=== PATIENT | female | born 1990 | race Caucasian/White ===

== ENCOUNTER 2018-07-12 12:56 | Emergency (ER) | payer MEDICAID, SELFPAY ==
[2018-07-12 12:57] VITALS: BP 115/69; PULSE 109; RESP 18; TEMP 38.1; O2SAT 100; BMI 20.1
--- NOTE | 2018-07-12 13:09 | RAD_ITS ---
STUDY: X-RAY CHEST REASON FOR EXAM: Female, 27 years old. Several day history of fever and generalized illness. TECHNIQUE: PA and lateral views of the chest. COMPARISON: None. FINDINGS: The lungs are clear and expanded. Scattered calcified granulomas. There is no demonstrated pleural abnormality. Normal size heart. Normal mediastinum and nydia. Normal visualized pulmonary arteries. Normal visualized aortic arch and descending thoracic aorta. Normal visualized thoracic spine. Normal visualized ribs, clavicles, and shoulders. There is no demonstrated abnormality of the visualized soft tissue structures of the upper abdomen. RAD/Chest PA and Lateral IMPRESSION: Normal x-ray examination of the chest. Electronically Signed: Tushar Borrego MD at 14:26 EDT Tel [phone], Service support ,
[2018-07-12 13:13] VITALS: BP 110/63; PULSE 99; RESP 16; O2SAT 100
[2018-07-12] MEDS: Ketorolac 30 MG/ML Syringe IV (13:34)
[2018-07-12] MEDS: 0.9% Normal Saline 1,000 ML 1000 ML IV (13:34)
[2018-07-12] MEDS: Ondansetron 4 MG/2 ML Vial IV (13:34)
[2018-07-12 13:39] LABS: Absolute Lymphocyte Count 0.64 X10^3/ul (0.83-4.51); Absolute Neutrophil Count 9.2 X10^3/uL (2.0-7.7); Basophil# 0.01 X10^3/uL; Basophil% 0.1 % (0-1); Eosinophil# 0.02 X10^3/uL; Eosinophils% 0.2 % (0-5); Hematocrit 35.7 % (37-47); Hemoglobin 11.5 g/dl (12.0-15.0); Lymphocyte # 0.64 X10^3/ul (4.0); Lymphocyte % 6.1 % (19-41); Mean Corp Hgb Conc 32.2 g/gl (32-36); Mean Corpuscular Hgb 28.8 pg (27.0-32.0); Mean Corpuscular Volume 89.3 fL (81-99); Mean Platelet Vol. 10.2 fl (6.2-12.0); Monocyte# 0.56 X10^3/uL; Monocyte% 5.3 % (0-10); Neutrophil # 9.24 X10^3/uL (2.7-7.7); Neutrophil % 88.2 % (47-70); Platelet Count 137 K/mm3 (150-450); RBC Distribution Width CV 13.2 % (11.6-14.6); RBC Distribution Width SD 43.1 fl (35.1-43.9); White Blood Count 10.5 K/mm3 (4.4-11.0)
[2018-07-12 13:40] LABS: POSITIVE COUNT NO; POSITIVE DIFFERENTIAL NO; POSITIVE MORPHOLOGY NO
[2018-07-12 13:41] LABS: Anion Gap 7 (5-15); BUN 14 mg/dL (7-18); BUN/Creat Ratio 14.4 RATIO (10-20); Calcium,Total 8.3 mg/dL (8.5-10.1); Chloride 107 mmol/L (98-107); Creatinine, Serum 0.97 mg/dL (0.55-1.02); EST Glomerular Filtration Rate 72 mL/min (>60); Est Glom Filt Rate - Afr Amer 87 mL/min (>60); Estimated Creatinine Clearance 68.01 ml/min; Glucose 118 mg/dL (74-106); Potassium 3.8 mmol/L (3.5-5.1); Sodium Level 139 mmol/L (136-145)
--- NOTE | 2018-07-12 13:44 | ED.VISSUMM ---
- ER Visit Summary Date of Service: 07/12/18 Chief Complaint: Fever History of Present Illness: The patient is a 27 F presents to the emergency department fever and chills. The patient states her symptoms began about 5 days ago. She states that she had just generalized malaise and some body aches. Since then, her symptoms worsened. She is been nauseated and lightheaded. She is also had sore throat and productive cough. She describes diffuse muscle pain. She denies any shortness of breath. She denies any abdominal pain. She denies any dysuria. Her fianc? was sick with a diarrhea illness but she states that her symptoms are different. Physical Examination: Vital signs reviewed General: Well-nourished, well-developed Head: Normocephalic, atraumatic Eyes: Pupils equal and reactive, extraocular muscles intact Neck, supple, no lymphadenopathy Heart: Regular rate and rhythm Respiratory: No distress, clear bilaterally Abdomen: Soft, nontender, nondistended, no peritoneal signs Back: Nontender Extremities: Nontender, no edema, no cords Skin: Normal color no rash Neuro: Alert and oriented, no focal or lateralizing deficits Test Results: [] Emergency Department Course and Treatment: The patient presents with fever and myalgias. She does have some scant erythema of the left tonsil. The uvula is midline. There is no evidence of retropharyngeal or peritonsillar abscess. IV was established. Patient was given fluids, Zofran, and Toradol. She did have improvement of her pain and resolution of her fever. Labs do show mild leukocytosis but otherwise unremarkable. The patient's rapid strep was positive, but it also appears as if she has evidence of pyelonephritis. Urine culture was added. I do feel that the most appropriate treatment at this time would be oral Augmentin to cover both the urine and the pharyngitis. The patient is feeling improved. At this time, I do feel that she is safe for outpatient therapy. She was counseled on concerning symptoms and reasons to return. She will be discharged home. Treatment Plan: [] Disposition: Discharge Impression: 1. Pyonephritis 2. Strep pharyngitis This note was generated with [employer] software. It may contain incorrect words, spelling, and punctuation that were not noted in review of the chart prior to signing ED Disposition - Plan for ED Patient: Chief Complaint: Fever Instructions: ED Kidney Infec Female Prescriptions: Ondansetron [Zofran Odt] 4 mg PO Q8H PRN PRN #10 tab PRN Reason: Nausea Amox/Clavulanate Tablet [Augmentin Tablet] 875 mg PO Q12H #20 tab Referrals: Care Physician,No Primary [Primary Care Provider] -
[2018-07-12 14:00] LABS: Color, Urine Yellow (Yellow); Glucose, Dipstick 100 mg/dl (Normal); Ketone-Dipstick 15 mg/dl (Negative); Leukocyte Esterase-Dipstick 500 /ul (Negative); Nitrite-Dipstick Positive (Negative); Occult Blood-Urine 250 /ul (Negative); Protein-Dipstick 100 mg/dl (Negative); Urine Bilirubin Dipstick Negative (Negative); Urine Clarity Cloudy (Clear); Urine Urobilinogen 4 mg/dl (Normal); Urine pH 6.5 (5.0 - 8.0)
[2018-07-12 14:03] LABS: Internal QC Validated? YES +Cl - CLEAR BKGD; Pregnancy, Urine Negative Negative
[2018-07-12 14:10] LABS: White Blood Cells >100 SEEN /hpf (0-5)
[2018-07-12 14:11] LABS: Bacteria 1+ /hpf (None Seen); Red Blood Cells-Urine > 100 SEEN /hpf (0-5); Squamous Epithelial Cells - UA 5-10 SEEN /hpf (5-10)
[2018-07-12 14:12] LABS: Mucous, Urine RARE /hpf (<or=2+)
[2018-07-12 14:13] LABS: Trichomonas 0-5 SEEN /hpf (None Seen)
[2018-07-12 15:20] VITALS: BP 91/61; PULSE 93; RESP 16; O2SAT 98
[2018-07-12] MEDS: Amox/Clavulanate 875 MG Tablet PO (15:20)
== END 2018-07-12 15:32 | disposition home or self-care (01) ==
PROVIDERS: Emergency Provider Emergency Medicine
DX: N12 Tubulo-interstitial nephritis, not specified as acute or chronic (principal); B96.89 Other specified bacterial agents as the cause of diseases classified elsewhere; J02.0 Streptococcal pharyngitis; Z72.0 Tobacco use
CPT/HCPCS: 71046; 80048; 81001; 81025; 85025; 87086; 87088; 87186; 87880; 96361; 96374; 96375; 99283; J7030; A4216; J2405

== ENCOUNTER 2019-08-22 09:50 | Emergency (ER) | payer MEDICAID, SELFPAY ==
[2019-08-22 09:51] VITALS: BP 123/73; PULSE 76; RESP 18; TEMP 36.6; O2SAT 100; BMI 18.6
[2019-08-22 09:53] VITALS: TEMP 36.6
--- NOTE | 2019-08-22 10:02 | ED.DCSUM_ITS ---
- ER Visit Summary Date of Service: 08/22/19 Chief Complaint: Dental pain History of Present Illness: The patient is a 29 F who states for the past 3 days she had a left lower posterior tooth pain. She has not made an appointment with dentist but thinks she should. States the pain continues to persist no difficulty opening her mouth. She is a daily smoker. No fevers. Physical Examination: Afebrile vital signs are stable Gen: Well-nourished well-developed Head: Normocephalic atraumatic Eyes: Perrl EOMI ENT: TMs clear no rhinorrhea moist mucous membranes there are numerous teeth that are missing. On the right premolar there is evidence of focal decay but not painful. The posterior most remaining molar shows evidence of prior fillings. It is tender to palpation. There is no focal gum swelling. No jaw swelling. No trismus. No overlying erythema. Neck: Supple no lymphadenopathy no JVD nontender CVS: Regular rate rhythm no murmurs normal S1-S2 Respiratory: No distress clear to auscultation bilaterally chest nontender Abdomen: Soft nontender nondistended normal bowel sounds no masses Back: Nontender Extremity: Nontender no edema Skin: Normal color no rash Neuro: alert orientated ?3 CN II-XII intact normal strength sensation reflexes gait cerebellar Psych: Normal affect normal mood Emergency Department Course and Treatment: Patient was given a short course of Pen-Vee K as well as scheduled ibuprofen. She is to see dentistry as soon as possible Impression: 1. Odontalgia This note was generated with [employer] dictation software. It may contain incorrect words, spelling, and punctuation that were not noted in review of the chart prior to signing ED Disposition - Plan for ED Patient: Disposition: Home or Assisted Living Instructions: Dental Pain Prescriptions: Ibuprofen [Motrin] 800 mg PO TID PRN PRN #20 tab PRN Reason: pain Prescription Printed Penicillin V Potassium 500 mg PO 4X/DAY #20 tab Prescription Printed Additional Instructions: You need to see dentistry as soon as possible. If you do not see dentistry this is a problem that persist
[2019-08-22 10:24] VITALS: RESP 16
== END 2019-08-22 10:24 | disposition home or self-care (01) ==
PROVIDERS: Emergency Provider Emergency Medicine
DX: K02.9 Dental caries, unspecified (principal); F17.210 Nicotine dependence, cigarettes, uncomplicated
CPT/HCPCS: 99282

== ENCOUNTER 2020-06-19 19:27 | Emergency (ER) | payer MEDICAID, SELFPAY ==
[2020-06-19 19:28] VITALS: BP 111/68; PULSE 79; RESP 15; TEMP 36.8; O2SAT 99; BMI 17.6
--- NOTE | 2020-06-19 19:39 | ED.DCSUM_ITS ---
History of Present Illness Chief Complaint: Fever Informant: Patient Onset: Days - 3 days Context: Gradual Onset Timing: Waxes and wanes Current Severity: Mild Maximum Severity: Moderate Narrative: Patient presents with 3-day history of fever, T-max equals 102. She states has been taking DayQuil and ibuprofen to help keep her fever down. She was seen by her doctor last week and did get what she believes was the pneumonia vaccine. She denies sore throat or congestion. She has no cough, chest pain, or shortness of breath. She denies abdominal pain, nausea, vomiting, or diarrhea. She denies urinary symptoms. She has no wounds or lesions noted. She denies exposure to anyone known to have Covid. She states she has been staying home and not really going out. - Past Medical History (1) Anxiety and depression Status: Chronic Past Medical History - Allergies and Home Meds Allergies/Adverse Reactions: Allergies No Known Allergies Allergy (Verified 08/22/19 09:52) Primary Care Physician: Josue Osuna MD [Primary Care Provider] - Smoking Status: Former smoker - Quit smoking 1 week ago Review of Systems General: Reports: Fever Eyes: Denies: Visual changes - bilaterally ENT: Denies: Bilateral ear pain, Sore throat Cardiovascular: Denies: Chest pain Respiratory: Denies: Dyspnea, Cough Gastrointestinal: Denies: Abdominal pain, Nausea, Vomiting, Diarrhea Genitourinary: Denies: Dysuria Musculoskeletal: Denies: Swelling, Extremity Pain Skin: Denies: Rash, Wounds Neurological: Denies: Headache Hematologic: Denies: Easy bruising, Easy bleeding Allergy: Denies: Uticaria Physical Exam Vital Signs/Narrative: Vital Signs Temp Pulse Resp BP Pulse Ox 06/19/20 19:28 98.2 F 79 15 111/68 99 Inital Vital Signs reviewed: Yes General: Well nourished, Well developed Head: Normocephalic ENT: Moist mucous membranes, TM's clear Neck: Supple Cardiovascular: Regular rate, Regular rhythm Respiratory: No distress, CTA bilaterally Abdomen: Soft, Nontender, Normal bowel sounds Back: Nontender Extremities: Nontender Skin: Normal color Neurological: Alert, Oriented x3 Psychological: Normal affect Diagnostic/Tx/Re-eval Impressions Chest X-Ray 06/19/20 20:02 IMPRESSION: Normal x-ray examination of the chest. Electronically Signed: Quyen Mosqueda at 20:16 EDT Tel , Service support , 06/19/20 20:02 Chest PA and Lateral [RAD] Stat Laboratory Results 06/19/20 19:45 Urine Color Yellow Urine Clarity Cloudy Urine pH 6.0 Ur Specific [place] 1.020 Urine Protein 30 H Urine Glucose (UA) Normal Urine Ketones 5 H Urine Occult Blood 250 H Urine Nitrite Positive H Urine Bilirubin Negative Urine Urobilinogen 8 H Ur Leukocyte Esterase 500 H - Medical Decision Making 2 view chest x-ray is unremarkable. Urinalysis does appear to show infection. She will be treated with a 3-day course of Bactrim, first dose given here. If the patient continues to have fevers beyond that, she is to follow with her PCP, Dr. Osuna. ED Disposition - Plan for ED Patient: Disposition: Home or Assisted Living Diagnosis: Cystitis Instructions: ED CYSTITIS Female Adult Prescriptions: Smz/Tmp Ds [Bactrim Ds] 1 tab PO BID #6 tab Transmission Status: Pending to [facility] #30 Referrals: Josue Osuna MD [Primary Care Provider] - 1 Week if not improving
[2020-06-19 19:52] LABS: Mucous, Urine 0 SEEN /hpf (<or=2+)
[2020-06-19 19:54] LABS: Color, Urine Yellow (Yellow); Glucose, Dipstick Normal (Normal); Ketone-Dipstick 5 mg/dl (Negative); Leukocyte Esterase-Dipstick 500 /ul (Negative); Nitrite-Dipstick Positive (Negative); Occult Blood-Urine 250 /ul (Negative); Protein-Dipstick 30 mg/dl (Negative); Urine Bilirubin Dipstick Negative (Negative); Urine Clarity Cloudy (Clear); Urine Urobilinogen 8 mg/dl (Normal)
--- NOTE | 2020-06-19 20:02 | RAD_ITS ---
STUDY: X-RAY CHEST REASON FOR EXAM: Female, 29 years old. FEVER TECHNIQUE: Frontal and lateral views of the chest COMPARISON: 12 July 2018 FINDINGS: The lungs are clear and expanded. There is no demonstrated pleural abnormality. Normal size heart. Normal mediastinum and nydia. Normal visualized pulmonary arteries. Normal visualized aortic arch and descending thoracic aorta. Normal visualized thoracic spine. Normal visualized ribs, clavicles, and shoulders. There is no demonstrated abnormality of the visualized soft tissue structures of the upper abdomen. RAD/Chest PA and Lateral IMPRESSION: Normal x-ray examination of the chest. Electronically Signed: Quyen Mosqueda, at 20:16 EDT Tel , Service support ,
[2020-06-19 20:38] LABS: Bacteria 1+ /hpf (None Seen); Red Blood Cells-Urine 25-50 SEEN /hpf (0-5); Squamous Epithelial Cells - UA 0-5 SEEN /hpf (5-10); Trichomonas 0-5 SEEN /hpf (None Seen); White Blood Cells 50-100 SEEN /hpf (0-5)
[2020-06-19] MEDS: Smz/Tmp Ds Tablet 1 TABLET PO (20:42)
== END 2020-06-19 20:44 | disposition home or self-care (01) ==
PROVIDERS: Emergency Provider Emergency Medicine; PCP Family Medicine
DX: N30.90 Cystitis, unspecified without hematuria (principal); Z87.891 Personal history of nicotine dependence
CPT/HCPCS: 71046; 81001; 99283

== ENCOUNTER 2020-09-10 04:31 | Emergency (ER) | payer MEDICAID, SELFPAY ==
[2020-09-10 04:32] VITALS: BP 125/90; PULSE 72; RESP 18; TEMP 36.8; O2SAT 100; BMI 18.7
--- NOTE | 2020-09-10 04:36 | ED.DCSUM_ITS ---
- ER Visit Summary Date of Service: 09/10/20 Chief Complaint: Tooth pain History of Present Illness: The patient is a 30 F who presents with tooth pain. Is been ongoing for 1 week. Is worse with eating. She tried ibuprofen without relief. She denies any fevers. She has a dentist and oral that she has not contacted for this. She is a smoker. Physical Examination: Vital signs reviewed. Mouth exam reveals widespread dental decay. There is no gingival abscess. There is a broken rotted tooth #17 it is tender to palpation.. There is no cervical lymphadenopathy. Test Results: None performed Emergency Department Course and Treatment: Patient will be treated with penicillin and naproxen. She will get the same for home. She will need to follow-up with her dentist. Treatment Plan: [] Disposition: Discharge Impression: Odontalgia This note was generated with [employer] dictation software. It may contain incorrect words, spelling, and punctuation that were not noted in review of the chart prior to signing ED Disposition - Plan for ED Patient: Disposition: Home or Assisted Living Instructions: ED Tooth Pain Prescriptions: Naproxen [Naprosyn] 500 mg PO BID PRN #20 tab Transmission Status: Pending to [facility] #30 Penicillin V Potassium 500 mg PO 4X/DAY #28 tab Transmission Status: Pending to [facility] #30 Referrals: Josue Osuna MD [Primary Care Provider] -
[2020-09-10] MEDS: Naproxen 500 MG Tablet PO (04:43)
[2020-09-10] MEDS: Penicillin Vk 250 MG Tablet 500 MG PO (04:43)
== END 2020-09-10 04:52 | disposition home or self-care (01) ==
LOC: ED 04:51
PROVIDERS: Emergency Provider Emergency Medicine; PCP Family Medicine
DX: K08.89 Other specified disorders of teeth and supporting structures (principal); F17.200 Nicotine dependence, unspecified, uncomplicated
CPT/HCPCS: 99283

== ENCOUNTER 2021-09-04 22:53 | Emergency (ER) | payer MEDICAID, SELFPAY ==
[2021-09-04 22:54] VITALS: BP 97/33; PULSE 72; RESP 16; TEMP 37.3; O2SAT 98; BMI 18.9
--- NOTE | 2021-09-04 23:15 | EDS_ITS ---
HPI HPI - Female History of Present Illness Chief Complaint: Complaint Informant: patient Pain Current Severity: Mild Maximum Severity: Mild Associated Symptoms Associated Symptoms: Positive for Urgency; Negative for Dysuria and Frequency Control: BTL Narrative Narrative: 29-year-old female no sniffing past medical history prior tubal ligation. States she is having urinary frequency. States she is currently on her menstrual cycle and having mild vaginal bleeding so she can tell there is blood in the urine or not. She denies any nausea or vomiting. Prior similar symptoms: Yes Recent Illness/Hospitalization: No PFSH PFSH Home Medications ibuprofen 800 mg PO TID PRN PRN #20 tab 08/22/19 [Rx Last Taken Unknown] naproxen 500 mg PO BID PRN #20 tab 09/10/20 [Rx Last Taken Unknown] cephalexin 500 mg PO Q6H 7 Days #28 cap 09/05/21 [Rx Last Taken Unknown] Allergy/AdvReac Type Severity Reaction Status Date / Time No Known Allergies Allergy Verified 09/04/21 22:56 Social History Smoking Status: Current every day smoker tobacco type: cigarettes ROS ROS ED ROS Narrative Urinary frequency. Review of Systems ROS Unobtainable: Denies due to encephalopathy Constitutional Constitutional ED: Denies fever(s) Eyes Eyes: Denies change in vision ENT ENT ED: Denies ear pain Cardiovascular Cardiovascular: Denies chest pain Respiratory/Chest Respiratory/Chest: Denies cough or dyspnea Gastrointestinal Gastrointestinal: Denies abdominal pain, diarrhea, nausea or vomiting Genitourinary Genitourinary ED: Reports urinary frequency; Denies dysuria or hematuria Musculoskeletal Musculoskeletal: Denies myalgias Integumentary Denies rash Neurologic Neurologic: Denies headache(s) Psychiatric Psychiatric: Denies depression Endocrine Endocrinology: Denies polyuria Hematologic/Lymphatic Hematologic/Lymphatic: Denies easy bruising Allergic/Immunologic Allergic/Immunologic ED: Denies urticaria EXAM Physical Exam Narrative Exam Narrative: 31-year-old female no acute distress vital signs stable afebrile does not look septic or toxic. HEENT exam unremarkable. Neck nontender no lymphadenopathy. Lungs clear to auscultation bilaterally. Heart regular rhythm no murmur. Abdomen soft nontender normal bowel sounds no peritoneal signs. Moving all 4 extremities. Back nontender. Neurologically awake and alert. Benign exam. Const Vital Signs: 09/04/21 22:54 Temperature 99.1 F Temperature Source Oral Pulse Rate 72 Respiratory Rate 16 Blood Pressure 97/33 L Blood Pressure Mean 54 Pulse Ox 98 Oxygen Delivery Method Room Air Positive well nourished and well developed; Negative for obese, cachectic, contractures or unkempt General Appearance ED: well developed and NAD; Negative for unkempt, cachectic, contractures or pallor Nutritional Appearance: Negative for cachectic or obese HEENT Reports moist mucous membranes Negative for trauma or tenderness Eyes PERRL and EOMs intact bilaterally Neck no lymphadenopathy, supple and no JVD Thyroid: Negative for tender Chest Wall inspection of chest normal and palpation of chest normal Resp normal respiratory effort and clear to auscultation bilaterally Effort and Inspection: Negative for pain with movement Auscultation: Negative for rales, rhonchi or wheezes Cardio regular rate, regular rhythm, S1 normal heart sound and no murmurs GI normal to inspection, nondistended, normoactive bowel sounds, soft to palpation, non-tender, non-distended and no masses Auscultation: normoactive bowel sounds; Negative for hypoactive bowel sounds Palpation: Negative for tender, guarding or rigid Back/Spine no CVA tenderness General Back: CVA tenderness Cervical Spine: Negative for cervical spine tenderness Thoracic Spine / Upper Back: Negative for thoracic spinal tenderness Extremity normal to inspection and full ROM General Extremety ED: Negative for edema or tenderness General Extremity: Negative for edema Neuro oriented x3 Sensorium / Orientation: alert, oriented to person, oriented to place and oriented to time Motor Exam: strength 5/5 throughout Psych mental status grossly normal Appearance: Negative for unkempt Mood & Affect: Negative for depressed or tearful Skin no rashes or lesions noted and no wounds General Skin Exam: Negative for jaundice or pallor MDM MDM MDM Narrative Medical decision making narrative: 31-year-old female concerned for possible UTI. Exam benign. Urinalysis sent. Discussed test results with patient she is doing well at 12:30 AM. Will be disc harged home. Lab Data Attestation: I reviewed the patient's lab results. Lab results narrative: Urinalysis consistent with UTI with 10-25 red cells, 10- 25 white cells. It is contaminated with 5-10 epithelial cells but is 2+ bacteria and positive nitrites on the treat this is a UTI and a culture was sent. Patient be started on Keflex. Labs: Laboratory Results - last 24 hr 09/04/21 23:14 Urine Color Yellow Urine Clarity Sl. Cloudy Urine pH 6.0 Ur Specific [place] 1.025 Urine Protein 30 H Urine Glucose (UA) Normal Urine Ketones 5 H Urine Occult Blood 150 H Urine Nitrite Positive H Urine Bilirubin Negative Urine Urobilinogen Normal Ur Leukocyte Esterase 100 H Urine RBC 10-25 SEEN Urine WBC 10-25 SEEN Ur Squamous Epith Cells 5-10 SEEN Amorphous Sediment 1+ URATE Urine Bacteria 2+ Urine Mucus 0 SEEN Discharge Plan Triage Chief Complaint: Complaint ED Provider: Berny Velazquez Dx/Rx/DC Orders Clinical Impression: Cystitis Instructions: ED CYSTITIS Female Adult Prescriptions: New cephalexin 500 mg capsule 500 mg PO Q6H 7 Days Qty: 28 RF: 0 No Action ibuprofen 800 MG tablet 800 mg PO TID PRN PRN (Reason: pain) Qty: 20 RF: 0 naproxen 500 MG tablet 500 mg PO BID PRN Qty: 20 RF: 0 Primary Care Provider: Josue Osuna Referrals: Josue Osuna MD [Primary Care Provider] - 3-5 Days if not improving Activity Restrictions/Additional Instructions: Plenty of fluids and rest. Keflex as antibiotic 4 times a day till gone. Follow-up with not improving or return if worse. Disposition Disposition: Home, Self Care
[2021-09-04 23:20] LABS: Mucous, Urine 0 SEEN /hpf (<or=2+)
[2021-09-04 23:21] LABS: Color, Urine Yellow (Yellow); Glucose, Dipstick Normal (Normal); Ketone-Dipstick 5 mg/dl (Negative); Leukocyte Esterase-Dipstick 100 /ul (Negative); Nitrite-Dipstick Positive (Negative); Occult Blood-Urine 150 /ul (Negative); Protein-Dipstick 30 mg/dl (Negative); Specific Gravity, Urine 1.025 (1.002-1.030); Urine Bilirubin Dipstick Negative (Negative); Urine Clarity Sl. Cloudy (Clear); Urine Urobilinogen Normal (Normal)
[2021-09-04 23:29] LABS: Amorphous Sediment 1+ URATE; Bacteria 2+ /hpf (None Seen); Red Blood Cells-Urine 10-25 SEEN /hpf (0-5); Squamous Epithelial Cells - UA 5-10 SEEN /hpf (5-10); White Blood Cells 10-25 SEEN /hpf (0-5)
[2021-09-05] MEDS: Cephalexin 250 MG Capsule 500 MG PO (00:46)
== END 2021-09-05 00:47 | disposition home or self-care (01) ==
PROVIDERS: Emergency Provider Emergency Medicine; PCP Family Medicine
DX: N30.90 Cystitis, unspecified without hematuria (principal); F17.210 Nicotine dependence, cigarettes, uncomplicated
CPT/HCPCS: 81001; 87077; 87086; 87088; 87186; 99283

== ENCOUNTER 2022-07-18 22:15 | Emergency (ER) | payer MEDICAID, SELFPAY ==
[2022-07-18 22:16] VITALS: BP 108/68; PULSE 87; RESP 14; TEMP 35.1; O2SAT 100; BMI 19.7
[2022-07-18 22:47] LABS: Mucous, Urine 0 SEEN /hpf (<or=2+)
[2022-07-18 23:08] LABS: Color, Urine Yellow (Yellow); Glucose, Dipstick Normal (Normal); Ketone-Dipstick 5 mg/dl (Negative); Leukocyte Esterase-Dipstick 500 /ul (Negative); Nitrite-Dipstick Negative (Negative); Occult Blood-Urine 250 /ul (Negative); Protein-Dipstick 30 mg/dl (Negative); Specific Gravity, Urine 1.015 (1.002-1.030); Urine Bilirubin Dipstick Negative (Negative); Urine Clarity Cloudy (Clear); Urine Urobilinogen Normal (Normal)
[2022-07-18 23:11] LABS: Internal QC Validated? YES +Cl - CLEAR BKGD; Pregnancy, Urine Negative Negative
[2022-07-18 23:21] LABS: Bacteria 2+ /hpf (None Seen); Red Blood Cells-Urine 25-50 SEEN /hpf (0-5); Squamous Epithelial Cells - UA 0-5 SEEN /hpf (5-10); White Blood Cells >100 SEEN /hpf (0-5)
[2022-07-18] MEDS: Smz/Tmp Ds Tablet 1 TABLET PO (23:29)
--- NOTE | 2022-07-18 23:45 | ED.VIS.FEGU ---
HPI HPI - Female History of Present Illness Chief Complaint: Complaint Narrative Narrative: 32-year-old female presenting with dysuria, urinary frequency, hematuria for about a week. She describes suprapubic pressure. Patient has history of UTIs in the past. She states has not had any fever, chills, nausea, vomiting. She denies constipation or diarrhea. She has no concern for . PFSH PFSH Home Medications phenazopyridine 200 mg tablet (Pyridium) 200 mg PO TID PRN pain 6 doses #6 tabs 07/18/22 [Rx Last Taken Unknown] sertraline 100 mg tablet 100 mg PO DAILY 07/18/22 [History Last Taken Unknown] sulfamethoxazole 800 mg-trimethoprim 160 mg tablet (Bactrim DS) 1 tab PO DAILY #14 tabs 07/18/22 [Rx Last Taken Unknown] trazodone 50 mg tablet 50 mg PO QPM 07/18/22 [History Last Taken Unknown] Allergy/AdvReac Type Severity Reaction Status Date / Time No Known Allergies Allergy Verified 09/04/21 22:56 Social History Smoking Status: Current every day smoker tobacco type: cigarettes ROS ROS ED Constitutional Constitutional ED: Denies chills or fever(s) Eyes Eyes: Denies change in vision ENT ENT ED: Denies rhinorrhea or sore throat Cardiovascular Cardiovascular: Denies chest pain or palpitations Respiratory/Chest Respiratory/Chest: Denies cough or dyspnea Gastrointestinal Gastrointestinal: Reports other Details: Suprapubic pressure ; Denies constipation Genitourinary Genitourinary ED: Reports dysuria, hematuria and urinary frequency Musculoskeletal Musculoskeletal: Denies arthralgias or myalgias Integumentary Denies abscess or Abrasions Neurologic Neurologic: Denies headache(s) or paresthesias Psychiatric Psychiatric: Denies anxiety or depression EXAM Physical Exam Const Vital Signs: 07/18/22 22:16 Temperature 95.2 F L Temperature Source Temporal Pulse Rate 87 Respiratory Rate 14 Blood Pressure 108/68 Blood Pressure Mean 81 Pulse Ox 100 Oxygen Delivery Method Room Air Positive well nourished General Appearance ED: NAD HEENT Reports moist mucous membranes Eyes PERRL and EOMs intact bilaterally Resp normal respiratory effort Cardio regular rate and regular rhythm GI normal to inspection, nondistended, normoactive bowel sounds Neuro oriented x3 and CN's II-XII intact bilaterally Sensorium / Orientation: alert Motor Exam: strength 5/5 throughout Psych mental status grossly normal Skin no rashes or lesions noted and no wounds MDM MDM MDM Narrative Medical decision making narrative: 32-year-old female presenting with dysuria, urinary frequency, hematuria. She has a history of UTIs. She declines analgesia. She is not having nausea or vomiting. Urinalysis consistent with infection. This was sent for culture. Patient states that Bactrim usually works for her. She is also given instruction for Pyridium. I do not believe she needs blood work. hCG negative. Patient discharged home in stable condition. Impression: 1. UTI Lab Data Attestation: I reviewed the patient's lab results. Labs: Laboratory Results - last 24 hr 07/18/22 22:40 Urine Color Yellow Urine Clarity Cloudy Urine pH 7.0 Ur Specific [place] 1.015 Urine Protein 30 H Urine Glucose (UA) Normal Urine Ketones 5 H Urine Occult Blood 250 H Urine Nitrite Negative Urine Bilirubin Negative Urine Urobilinogen Normal Ur Leukocyte Esterase 500 H Urine RBC 25-50 SEEN Urine WBC >100 SEEN Ur Squamous Epith Cells 0-5 SEEN Urine Bacteria 2+ Urine Mucus 0 SEEN Urine Test Negative Discharge Plan Triage Chief Complaint: Complaint ED Provider: Danial Mendenhall Dx/Rx/DC Orders Instructions: ED Cystitis Female Adult Prescriptions: New sulfamethoxazole-trimethoprim [Bactrim DS] 800-160 mg tablet 1 tab PO DAILY Qty: 14 0RF phenazopyridine [Pyridium] 200 mg tablet 200 mg PO TID PRN (Reason: pain) Qty: 6 0RF No Action trazodone 50 mg tablet 50 mg PO QPM Label Comments: Take 1 tablet by mouth daily at bedtime. sertraline 100 mg tablet 100 mg PO DAILY Label Comments: TAKE 1 TABLET BY MOUTH ONCE DAILY Primary Care Provider: Josue Osuna Referrals: Josue Osuna MD [Primary Care Provider] - Disposition Disposition: Home, Self Care
[2022-07-18] MEDS: Phenazopyridine 95 MG Tablet 190 MG PO (23:49)
== END 2022-07-18 23:50 | disposition home or self-care (01) ==
PROVIDERS: Emergency Provider Student in an Organized Health Care Education/Training Program; PCP Family Medicine; Visit Provider Student in an Organized Health Care Education/Training Program
DX: N39.0 Urinary tract infection, site not specified (principal); F17.210 Nicotine dependence, cigarettes, uncomplicated; Z87.440 Personal history of urinary (tract) infections
CPT/HCPCS: 81001; 81025; 87077; 87086; 87088; 87186; 99283

== ENCOUNTER 2023-04-27 22:36 | Emergency (ER) | payer MEDICAID, SELFPAY ==
[2023-04-27 22:37] VITALS: BP 119/78; PULSE 108; RESP 18; TEMP 39.4; O2SAT 97; BMI 19.2
--- NOTE | 2023-04-27 22:53 | EX.ED.DYSGE1 ---
HPI History of Present Illness Chief Complaint: Fever Informant: patient Onset/Context/Timing Onset: Today Narrative Narrative: Patient presents with rather abrupt onset of fever and chills this evening. She does report urgency with urination and has frequent UTIs. She denies dysuria. She denies abdominal pain or back pain. She reports taking 2 tabs of Tylenol roughly an hour ago. Her temperature on arrival to the ER is 103. She denies cough or congestion. [facility] Medical History (Updated 04/28/23 @ 00:[address] Jamee Snowden MD) Anxiety and depression Home Medications phenazopyridine 200 mg tablet (Pyridium) 200 mg PO TID PRN pain 6 doses #6 tabs 07/18/22 [Rx Last Taken Unknown] sertraline 100 mg tablet 100 mg PO DAILY 07/18/22 [History Last Taken Unknown] sulfamethoxazole 800 mg-trimethoprim 160 mg tablet (Bactrim DS) 1 tab PO DAILY #14 tabs 07/18/22 [Rx Last Taken Unknown] trazodone 50 mg tablet 50 mg PO QPM 07/18/22 [History Last Taken Unknown] nitrofurantoin monohydrate/macrocrystals 100 mg capsule (Macrobid) 100 mg PO Q12H 7 days #14 caps 04/28/23 [Rx Last Taken Unknown] Allergy/AdvReac Type Severity Reaction Status Date / Time No Known Allergies Allergy Verified 04/27/23 22:44 Surgical History History of tubal ligation Social History Smoking Status: Current every day smoker tobacco type: cigarettes ROS ROS ED Constitutional Constitutional ED: Reports chills and fever(s) Eyes Eyes: Denies change in vision or discharge from eye(s) ENT ENT ED: Denies discharge from eye(s), rhinorrhea or sore throat Cardiovascular Cardiovascular: Denies chest pain or palpitations Respiratory/Chest Respiratory/Chest: Denies cough or dyspnea Gastrointestinal Gastrointestinal: Denies abdominal pain, diarrhea, nausea or vomiting Genitourinary Genitourinary ED: Reports difficulty urinating and other Details: Urinary urgency ; Denies dysuria Musculoskeletal Musculoskeletal: Denies back pain or extremity pain Integumentary Denies Abrasions or rash Neurologic Neurologic: Reports other Details: Dizziness ; Denies headache(s) or weakness Psychiatric Psychiatric: Denies anxiety or depression Allergic/Immunologic Allergic/Immunologic ED: Denies lip swelling or urticaria EXAM Physical Exam Const Vital Signs: 04/27/23 22:37 04/27/23 23:27 Temperature 103.0 F H 103.0 F H Temperature Source Oral Oral Pulse Rate 108 H 100 Respiratory Rate 18 18 Blood Pressure 119/78 119/75 Blood Pressure Mean 91 89 Pulse Ox 97 98 Oxygen Delivery Method Room Air Room Air Positive well nourished and well developed General Appearance ED: well developed HEENT Reports moist mucous membranes Eyes PERRL and EOMs intact bilaterally Neck no lymphadenopathy Chest Wall inspection of chest normal and palpation of chest normal Resp normal respiratory effort and clear to auscultation bilaterally Cardio regular rate and regular rhythm GI non-tender Auscultation: hypoactive bowel sounds Palpation: soft Back/Spine no CVA tenderness Extremity normal to inspection Neuro oriented x3 and no sensory deficits noted Motor Exam: strength 5/5 throughout Psych mental status grossly normal Skin no rashes or lesions noted MDM MDM MDM Narrative Medical decision making narrative: Patient given IV fluids and ibuprofen. Labwork obtained to evaluate for leukocytosis, anemia, and electrolyte derangement. Urinalysis obtained to evaluate for infection/hematuria. Urine culture sent. Lab Data Attestation: I reviewed the patient's lab results. Labs: Laboratory Results - last 24 hr 04/27/23 04/27/23 04/27/23 22:47 23:05 23:12 WBC 6.1 RBC 4.13 L Hgb 12.5 Hct 38.1 MCV 92.3 MCH 30.3 MCHC 32.8 RDW Std Deviation 41.7 RDW Coeff of Edson 12.3 Plt Count 151 MPV 10.4 Immature Gran % (Auto) 0.700 Neut % (Auto) 84.7 H Lymph % (Auto) 11.7 L Sawyer % (Auto) 0.8 Eos % (Auto) 1.8 Baso % (Auto) 0.3 Absolute Neuts (auto) 5.1 Absolute Lymphs (auto) 0.71 L Nucleated RBC % 0 Sodium 141 Potassium 3.5 Chloride 108 H Carbon Dioxide 24.0 Anion Gap 9 BUN 16 Creatinine 0.96 Estim Creat Clear Calc 64.74 Est GFR (MDRD) Af Amer 85 Est GFR (MDRD) Non-Af 71 BUN/Creatinine Ratio 16.6 Glucose 116 H Lactic Acid 1.3 Calcium 8.1 L Urine Color Yellow Urine Clarity Cloudy Urine pH 6.0 Ur Specific [place] 1.020 Urine Protein 30 H Urine Glucose (UA) Normal Urine Ketones Negative Urine Occult Blood 150 H Urine Nitrite Positive H Urine Bilirubin Negative Urine Urobilinogen Normal Ur Leukocyte Esterase 500 H Urine RBC 10-25 SEEN Urine WBC >100 SEEN Ur Squamous Epith Cells 0-5 SEEN Urine Bacteria 4+ Urine Mucus 0 SEEN Treatment and Re-Evaluation :: CBC was normal white count at 6.1 with 84% neutrophils. Chemistry studies unremarkable. Lactic acid is normal at 1.3. Urinalysis reveals 4+ bacteria with greater than 100 white cells and positive nitrites. Blood and urine cultures have been sent. Patient was given a dose of IV Rocephin here. Her last urine culture from July grew staph saprophyticus. This was sensitive to Macrobid so she will be started on this. She was advised that if her urine culture reveals need for different antibiotic should be contacted. She voices understanding and agreement. Repeat oral temperature at this time is 98.4. Discharge Plan Triage Chief Complaint: Fever ED Provider: Jamee Snowden Dx/Rx/DC Orders Clinical Impression: UTI (urinary tract infection) Instructions: ED Cystitis Female Adult Prescriptions: New nitrofurantoin monohyd/m-cryst [Macrobid] 100 mg capsule 100 mg PO Q12H 7 Days Qty: 14 0RF Rx Instructions: must administer with a meal/food No Action trazodone 50 mg tablet 50 mg PO QPM Patient Comments: Take 1 tablet by mouth daily at bedtime. sertraline 100 mg tablet 100 mg PO DAILY Hold Instructions: MD Ordered Patient Comments: TAKE 1 TABLET BY MOUTH ONCE DAILY sulfamethoxazole-trimethoprim [Bactrim DS] 800-160 mg tablet 1 tab PO DAILY Qty: 14 0RF Hold Instructions: MD Ordered phenazopyridine [Pyridium] 200 mg tablet 200 mg PO TID PRN (Reason: pain) Qty: 6 0RF Hold Instructions: Ordered Primary Care Provider: Josue Osuna Referrals: Josue Osuna MD [Primary Care Provider] - 1 Week Disposition Disposition: Home, Self Care
[2023-04-27 23:09] LABS: Mucous, Urine 0 SEEN /hpf (<or=2+)
[2023-04-27 23:11] LABS: Absolute Lymphocyte Count 0.71 X10^3/uL (0.83-4.51); Absolute Neutrophil Count 5.1 X10^3/uL (2.0-7.7); Basophil# 0.02 X10^3/uL; Basophil% 0.3 % (0-1); Eosinophil# 0.11 X10^3/uL; Eosinophils% 1.8 % (0-5); Hematocrit 38.1 % (37-47); Hemoglobin 12.5 g/dL (12.0-15.0); Lymphocyte # 0.71 X10^3/ul (0.83-4.51); Lymphocyte % 11.7 % (19-41); Mean Corp Hgb Conc 32.8 g/dL (32-36); Mean Corpuscular Hgb 30.3 pg (27.0-32.0); Mean Corpuscular Volume 92.3 fL (81-99); Mean Platelet Vol. 10.4 fl (6.2-12.0); Monocyte# 0.05 X10^3/uL; Monocyte% 0.8 % (0-10); NRBC Flagged by Analyzer 0 % (0-5); Neutrophil # 5.13 X10^3/uL (2.7-7.7); Neutrophil % 84.7 % (47-70); Platelet Count 151 K/mm3 (150-450); RBC Distribution Width CV 12.3 % (11.6-14.6); RBC Distribution Width SD 41.7 fl (35.1-43.9); Red Blood Count 4.13 M/mm3 (4.2-5.4); White Blood Count 6.1 K/mm3 (4.4-11.0)
[2023-04-27 23:11] LABS: Color, Urine Yellow (Yellow); Glucose, Dipstick Normal (Normal); Ketone-Dipstick Negative (Negative); Leukocyte Esterase-Dipstick 500 /ul (Negative); Nitrite-Dipstick Positive (Negative); Occult Blood-Urine 150 /ul (Negative); Protein-Dipstick 30 mg/dl (Negative); Urine Bilirubin Dipstick Negative (Negative); Urine Clarity Cloudy (Clear); Urine Urobilinogen Normal (Normal)
[2023-04-27] MEDS: 0.9% Normal Saline 1,000 ML 1000 ML IV (23:11)
[2023-04-27 23:20] LABS: Bacteria 4+ /hpf (None Seen); White Blood Cells >100 SEEN /hpf (0-5)
[2023-04-27 23:21] LABS: Red Blood Cells-Urine 10-25 SEEN /hpf (0-5); Squamous Epithelial Cells - UA 0-5 SEEN /hpf (5-10)
[2023-04-27] MEDS: Ibuprofen 200 MG Tablet 400 MG PO (23:25)
[2023-04-27 23:27] VITALS: BP 119/75; PULSE 100; RESP 18; TEMP 39.4; O2SAT 98
[2023-04-27 23:29] LABS: Anion Gap 9 (5-15); BUN 16 mg/dL (7-18); BUN/Creat Ratio 16.6 RATIO (10-20); Calcium,Total 8.1 mg/dL (8.5-10.1); Chloride 108 mmol/L (98-107); Creatinine, Serum 0.96 mg/dL (0.55-1.02); EST Glomerular Filtration Rate 71 mL/min (>60); Est Glom Filt Rate - Afr Amer 85 mL/min (>60); Estimated Creatinine Clearance 64.74 ml/min; Glucose 116 mg/dL (74-106); Potassium 3.5 mmol/L (3.5-5.1); Sodium Level 141 mmol/L (136-145)
[2023-04-27] MEDS: Ceftriaxone 1 GM/50 ML BAG IV (23:51)
[2023-04-27 23:56] LABS: Lactic Acid 1.3 mmol/L (0.4-1.9)
[2023-04-28 00:59] VITALS: PULSE 85; RESP 18; TEMP 37.3; O2SAT 96
[2023-04-28 01:00] VITALS: TEMP 37.3
--- NOTE | 2023-04-28 18:07 | ED.RN ---
THIS RN RECEIVED POSITIVE PRELIMINARY BLOOD CULTURE RESULTS. PER DR. AVELAR REVIEW, PT WAS STARTED ON ANTIBIOTIC TX AND NEED TO AWAIT FINAL BLOOD CULTURE RESULTS SINCE ONLY ONE CULTURE OS SHOWING GROWTH AT THIS TIME.
== END 2023-04-28 01:04 | disposition home or self-care (01) ==
PROVIDERS: Emergency Provider Emergency Medicine; PCP Family Medicine; Visit Provider Emergency Medicine
DX: N39.0 Urinary tract infection, site not specified (principal); F17.210 Nicotine dependence, cigarettes, uncomplicated; F41.9 Anxiety disorder, unspecified; F32.A Depression, unspecified; Z79.899 Other long term (current) drug therapy
CPT/HCPCS: 36415; 80048; 81001; 83605; 85025; 87040; 87077; 87086; 87088; 87186; 96365; 99285; J7030; A4216

== ENCOUNTER 2024-02-25 00:14 | Emergency (ER) | payer MEDICAID, SELFPAY ==
[2024-02-25 00:15] VITALS: BP 110/70; PULSE 73; RESP 19; TEMP 36.7; O2SAT 100; BMI 20.3
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
[2024-02-25 01:03] LABS: Absolute Lymphocyte Count 4.89 X10^3/uL (0.83-4.51); Absolute Neutrophil Count 8.4 X10^3/uL (2.0-7.7); Basophil# 0.08 X10^3/uL; Basophil% 0.5 % (0-1); Eosinophils% 2.7 % (0-5); Hematocrit 39.8 % (37-47); Hemoglobin 12.7 g/dL (12.0-15.0); Lymphocyte # 4.89 X10^3/ul (0.83-4.51); Lymphocyte % 32.8 % (19-41); Mean Corp Hgb Conc 31.9 g/dL (32-36); Mean Corpuscular Hgb 29.7 pg (27.0-32.0); Mean Platelet Vol. 10.4 fl (6.2-12.0); Monocyte# 1.09 X10^3/uL; Monocyte% 7.3 % (0-10); NRBC Flagged by Analyzer 0 % (0-5); Neutrophil # 8.39 X10^3/uL (2.7-7.7); Neutrophil % 56.4 % (47-70); Platelet Count 259 K/mm3 (150-450); RBC Distribution Width CV 13.1 % (11.6-14.6); RBC Distribution Width SD 44.3 fl (35.1-43.9); Red Blood Count 4.28 M/mm3 (4.2-5.4); White Blood Count 14.9 K/mm3 (4.4-11.0)
[2024-02-25] MEDS: Diphth,Pertuss(Acell),Tet Vac 0.5 ML Vial IM (01:04)
[2024-02-25] MEDS: Morphine 4 MG/ML Syringe IV (01:04)
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
[2024-02-25 01:15] VITALS: BP 94/66; PULSE 77; RESP 16; O2SAT 100
[2024-02-25 01:16] LABS: Internal QC Validated? YES +Cl - CLEAR BKGD; Pregnancy, Serum, hCG Quali. NEGATIVE Negative
[2024-02-25 01:17] LABS: Anion Gap 4 (5-15); BUN 19 mg/dL (7-18); BUN/Creat Ratio 21.4 RATIO (10-20); Calcium,Total 8.7 mg/dL (8.5-10.1); Chloride 107 mmol/L (98-107); Creatinine, Serum 0.89 mg/dL (0.55-1.02); EST Glomerular Filtration Rate 77 mL/min (>60); Est Glom Filt Rate - Afr Amer 93 mL/min (>60); Glucose 128 mg/dL (74-106); Potassium 3.5 mmol/L (3.5-5.1); Sodium Level 140 mmol/L (136-145)
[2024-02-25] MEDS: Cefazolin 1 GM/50 ML BAG IV (02:14)
[2024-02-25 02:25] VITALS: BP 101/58; PULSE 79; RESP 16; TEMP 36.6; O2SAT 97
[2024-02-25 02:30] VITALS: BP 101/58; PULSE 77; RESP 16; TEMP 36.6; O2SAT 100
[2024-02-25 02:35] VITALS: BP 101/58; PULSE 77; RESP 16; TEMP 36.7; O2SAT 100
== END 2024-02-25 02:38 | disposition short-term general hospital (02) ==
PROVIDERS: Emergency Provider Emergency Medicine; PCP Family Medicine; Visit Provider Emergency Medicine
DX: S62.315B Displaced fracture of base of fourth metacarpal bone, left hand, initial encounter for open fracture (principal); S61.412A Laceration without foreign body of left hand, initial encounter; F17.210 Nicotine dependence, cigarettes, uncomplicated; Z18.10 Retained metal fragments, unspecified; W34.00XA Accidental discharge from unspecified firearms or gun, initial encounter; Z23 Encounter for immunization
CPT/HCPCS: 73130; 80048; 84703; 85025; 90471; 90715; 96365; 96375; 99284

== ENCOUNTER 2024-07-29 10:30 | Outpatient (RCR) | payer MEDICAID, SELFPAY ==
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
== END 2024-07-29 19:00 | disposition home or self-care (01) ==
LOC: OT 10:30
PROVIDERS: PCP Family Medicine
DX: S61.432D Puncture wound without foreign body of left hand, subsequent encounter (principal)
CPT/HCPCS: 97032; 97110; 97140; 97165; 97530